=== PATIENT | male | born 1990 ===

== ENCOUNTER 2021-09-11 18:32 | Emergency (ER) | payer SELFPAY ==
[~2021-09-11] VITALS: Ht 182.9 cm; Wt 72.7 kg
[2021-09-11 18:58] VITALS: TEMP 97.9
[2021-09-11] MEDS ORDERED: BACTRIM DS 8001 TAB PO (19:20)
[2021-09-11 19:26] VITALS: BP 127/82; PULSE 92
== END 2021-09-11 19:45 | disposition home or self-care (01) ==
LOC: COL.ER 18:32
DX: L03.114 Cellulitis of left upper limb (principal)
CPT/HCPCS: J0696